=== PATIENT | male | born 1955 | race Caucasian/White ===

== ENCOUNTER 2024-11-14 23:41 | Observation (INO) | payer MEDICARE, MEDICAID ==
[~2024-11-14] VITALS: Ht 172.7 cm; Wt 70.0 kg
[2024-11-15] VITALS (16 sets, daily range): BP systolic 137–161; BP diastolic 69–100; PULSE 102–118; RESP 14–24; TEMP 97.9–98.3; O2SAT 94–100
[2024-11-15 00:46] LABS: MEAN PLATELET VOLUME 6.7 FL (7.4-10.4); RED CELL DISTRIBUTION WIDTH 16.5 % (11.5-14.5)
[2024-11-15 01:01] LABS: CREATININE 0.80 MG/DL (0.60-1.10); TOTAL CARBON DIOXIDE 34.2 MMOL/L (24-32); eCRCL 87 ML/MIN; eGFR > 90 ML/MIN
--- NOTE | 2024-11-15 01:07 | RADIOLOGY REPORT ---
CHEST RADIOGRAPH Indication: sob Technique: 1 view Comparison: None FINDINGS: Lines and Tubes: External leads. Lungs/Pleura: Bilateral infrahilar interstitial opacities. Relative lucency of the upper lungs. No consolidation or evident pleural abnormality. Cardiomediastinum: Unremarkable. Other: No acute osseous abnormality. IMPRESSION: 1. Infrahilar interstitial opacities may be related to reticulation from chronic emphysema, edema and/or atypical infection.
--- NOTE | 2024-11-15 02:16 | Physician Documentation ---
History of Present Illness ~ Chief Complaint: Difficulty Breathing Stated Complaint: CHEST XRAY Time Seen by MD: 23:56 Mode of Arrival: EMS HPI This is a 69-year-old gentleman who was not hospice, for his end-stage COPD, normally on 2 L of oxygen, was transferred to us from a group home facility where he normally resides because his chest x-ray that was obtained incidentall y, stated that is might potentially be sign of TB. The gentleman has a no known exposure to tuberculosis, no new symptoms. He does report night sweats for the last 10 years. He has never been tested for tuberculosis. He reports shortness a breath, chronic, unchanged. Denies any chest pain. Denies any nausea, vomiting, diarrhea, abdominal pain. Denies any current fever. Medication Reconciliation Allergies: Coded Allergies: codeine (Verified Allergy, Intermediate, 11/15/24) Review of Systems ROS 10 point review of systems was performed and unless noted above in HPI is negative for acute process/complaint. Physical Exam Vital Signs: Temperature: 98.2, Source: Oral, Heart Rate: 112, Respiratory Rate: 14, BP: 163/95, Pulse Oximetry: 99, Weight: 70.000 Oxygen Flow Rate: 2.0 Physical Exam GENERAL: Awake, alert, oriented, GCS 15, no apparent distress, non-toxic appearing, answers questions, follows commands appropriately. Examined in bed 1. HEENT: Atraumatic, normocephalic, pupils equal, extraocular muscles intact, sclerae anicteric, mucus membranes moist, oropharynx is clear, no stridor. NECK: supple, full active range of motion, trachea midline, no thyromegaly, no lymphadenopathy, no JVD. CARDIOVASCULAR: Tachycardic and regular rate/rhythm, no murmurs/gallops/rubs, Pulses are 2+ in all extremities and symmetric. Capillary refill less than 2 seconds. PULMONARY: Nonlabored, good air movement ,no respiratory distress, speaking in full sentences, coarse breath sounds bilaterally, no wheezing, no ronchi, no rales, no accessory muscle use. GASTROINTESTINAL: Soft, non-tender, non-distended, normal active bowel sounds, no organomegaly, no pulsatile masses, no CVA tenderness. NEUROLOGIC: Lucid with normal mental status. Normal facial symmetry. Moves all extremities symmetrically and with purpose. No truncal ataxia. Speech is fluid without evidence of dysarthria or aphasia, no focal deficits appreciated. MUSCULOSKELETAL: There is full range of motion of all extremities. There is no joint pain or joint swelling or joint erythema. There is no muscle pain or tenderness or swelling. EXTREMITIES: warm, well-perfused, no cyanosis, no clubbing, no edema, no acute deformities. Skin: warm, dry, no rashes or lesions, no jaundice, no petechiae orpurpura. No ecchymosis. PSYCHIATRIC: Normal affect, normal insight, normal concentration. Focused exam: [] Progress Results/Orders Results/Orders Orders - VERONIKA ROSARIO DO Electrocardiogram (11/14/24 23:56) Chest,Single View (11/14/24 23:56) Completed Orders - VERONIKA ROSARIO DO Cbc/Diff (11/14/24 23:56) ESR (11/14/24 23:56) C-Reactive Protein (11/14/24 23:56) MG (11/14/24 23:56) Hs Troponin I W Calculations (11/14/24 23:56) CMP (11/14/24 23:56) Chest,Single View (11/14/24 23:56) Vital Signs 11/14/24 11/15/24 11/15/24 23:56 00:12 01:37 Temp 98.2 98.2 98.2 Pulse 113 109 112 Resp 16 14 14 B/P (MAP) 147/101 147/100 (116) 163/95 (117) Pulse Ox 97 97 99 O2 Flow Rate 2.0 2.0 2.0 Laboratory Tests Test 11/15/24 00:36 White Blood Count 9.5 Red Blood Count 3.79 L Hemoglobin 10.0 L Hematocrit 32.0 L Mean Corpuscular Volume 84.3 Mean Corpuscular Hemoglobin 26.5 L Mean Corpuscular Hemoglobin Concent 31.4 L Red Cell Distribution Width 16.5 H Platelet Count 251 Mean Platelet Volume 6.7 L Neutrophils (%) (Auto) 79.7 H Lymphocytes (%) (Auto) 10.4 L Monocytes (%) (Auto) 8.0 Eosinophils (%) (Auto) 1.3 Basophils (%) (Auto) 0.6 Neutrophils # (Auto) 7.6 Lymphocytes # (Auto) 1.0 L Monocytes # (Auto) 0.8 Eosinophils # (Auto) 0.1 Basophils # (Auto) 0.1 CBC Comment Erythrocyte Sedimentation Rate 62 H Sodium Level 132 L Potassium Level 4.0 Chloride Level 92 L Carbon Dioxide Level 34.2 H Anion Gap 6 L Blood Urea Nitrogen 20 H Creatinine 0.80 Estimated GFR/1.73 m2 > 90 BUN/Creatinine Ratio 25.0 H Glucose Level 130 H Calcium Level 8.9 Magnesium Level 1.9 Total Bilirubin 0.3 Aspartate Amino Transf (AST/SGOT) 18 Alanine Aminotransferase (ALT/SGPT) 15 Alkaline Phosphatase 132 H Troponin I High Sensitivity 33 C-Reactive Protein 2.25 H Total Protein 8.3 H Albumin 2.6 L Globulin 5.7 H Albumin/Globulin Ratio 0.5 L Chemistry Comments EKG/XRAY/CT/US/VASC/MRI EKG : Additional Comment EKG was obtained and interpreted by myself shows sinus tachycardic, rate of 109, normal HI interval, narrow QRS, no QT prolongation, normal axis, no STEMI. Medical Decision Making Findings Facility Status: ED Holds, [facility] process The plan was discussed with the patient, who demonstrates clear understanding of the plan and is in agreement with the plan unless otherwise noted in the chart. All questions have been answered, all concerns were addressed unless otherwise documented. I was available throughout their ED stay for frequent reassessment and questions. Differential Diagnoses (considered and possible or likely): [COPD exacerbation, COVID, pneumonia, occult bacteremia, ACS, CHF, significantly less likely actual tuberculosis.] ??Differential Diagnoses (considered and unlikely, not requiring evaluation currently): [See above] MDM Data Please see [facility] for the following: Independent Historians and external Records Review. Historian: [Patient] Independent Historians: ?[Record review including the ill fated chest x-ray] Medication Management: [Reviewed medication list] Social History and determinants: [Reviewed] Please see the body of the note for the following: Any independent interpretations of ECG, imaging studies. All vitals signs/haemodynamics, ordered tests were independently reviewed and interpreted by myself. Nursing triage complaint and vitals reviewed, additional nursing notes were reviewed as available and I agree unless otherwise noted or documented in contradiction in the chart Vital Signs: Independently reviewed Labs: Independently interpreted Imaging: Independently interpreted Old Medical Records: Independently reviewed, see [facility] for relevant summary and information Pulse Oximetry: [95% on baseline 2 L] interpreted as [baseline hypoxia] by me Additionally notably showing: [Hemodynamics reviewed. The patient is on baseline 2 L. Tachycardia persists. No evidence of hypoxia. Laboratory studies reviewed. There was no leukocytosis, anemia of 10. ESR slightly elevated at 62. CRP is elevated. Chemistry notable for dehydration. Troponin is within normal limits. Imaging was repeated. It shows bilateral infrahilar interstitial opacities.] Tests considered but not ordered include: [Advanced imaging has been considerably does not appear to be necessary in the setting] Social Determinants of Health Impact: Patient was evaluated in [facility] [place] access to healthcare due to below par ratio of patient to medical providers. [] Comorbid Conditions Impacting Present Evaluation and Care/Treatment: [End-stage COPD] Management Discussions with other Healthcare Providers: [Hospitalist regarding admission] Treatment and Disposition Medication Management (Given or considered): []. See EMR for details Consideration for Hospitalization/Escalation/Deescalation of Care: Admission for observation has been considered, and appears to be necessary until we can re ceive results of QuantiFERON gold ?ED Course:?[QuantiFERON gold test is a send out.] ?Shared decision making:?[] Code status:?FULL Please see the full Electronic Medical Record for full details of nursing documentation, medications list, other records of complete past medical history and conditions, vital signs, laboratory studies, and any radiologic study interpretations by radiologists. Portions of this note were completed using [employer] dictation software and as a result there may exist minor errors in spelling. I have reviewed elements of past family and social history and agree as included in note. Departure Disposition: ADMITTED INPATIENT Impression: Primary Impression: Shortness of breath Additional Impression: Night sweats Condition: Stable Referrals: NO PRIMARY CARE PROVIDER (PCP) Signature Scribe Signature: No scribe Attestation: Date: Nov 15, 2024 Time: 02:15 This note accurately reflects clinical decisions, work performed by myself, DO ABRAHAM Buckner NICHOLAS M DO Nov 15, 2024 02:16
[2024-11-15] MEDS: normal saline 1000ml 1,000 ML IV ONE (02:35)
[2024-11-15] MEDS ORDERED: magnesium Cl slow-release 64mg tablet PO PRN (03:30)
[2024-11-15] MEDS ORDERED: magnesium sulf-water 4G/100mL 100 ML IV PRN (03:30)
[2024-11-15] MEDS ORDERED: PERFLUTREN PROTEIN-A MICROSPHR (Optison) 0.22 MG/ML 3ML VIAL IV PRN (03:30)
[2024-11-15] MEDS ORDERED: ondansetron/PF 4mg/2ml inj IV PRN (03:30)
[2024-11-15] MEDS ORDERED: potassium Cl 40MEQ/1/2NS 520ml 520 ML IV PRN (03:30)
[2024-11-15] MEDS ORDERED: potassium Cl 20 mEq SR tablet PO PRN ×2 (03:30)
[2024-11-15] MEDS ORDERED: magnesium sulf-water 2g/50mL 50 ML IV PRN (03:30)
--- NOTE | 2024-11-15 03:39 | HISTORY AND PHYSICAL-Residence ---
History & Physical Providers to CC Resident Creating Document: MARITA CRISOSTOMO RES ~ History of Present Illness Reason for Admit\\Complaint: Suspected TB, SOB History of Present Illness The patient is a 69-year-old man with a history of end-stage COPD, on 2-3 L of home oxygen, who presents from [facility] in [place]. He was sent to the hospital after a chest x-ray appeared suspicious for tuberculosis. [facility] and was recently enrolled in hospice care for end-stage lung disease. In addition to chronic COPD symptoms, he reports night sweats, intermittent nightly fevers, anorexia, loss of appetite, and unintentional weight loss over the past year. He also notes increased sputum production, yellow and occasionally green in color, but denies hemoptysis. The patient stated that if diagnosed with tuberculosis, he would want full treatment. He expressed disagreement with his recent hospice determination, noting that he felt "pushed" into that decision by his [place] physician. Regarding his social and functional status, he previously lived with his but has been at the hospice facility for the past three days. He ambulates with a walker but is limited to only a few steps due to COPD and significant dyspnea on exertion. He follows with Dr. Mejía, last seen one year ago. He has been using prednisolone intermittently for COPD. He denies other risk factors for tuberculosis, including incarceration, travel to endemic regions, or known exposure to patients with TB. His only identified risk factor is chronic immunosuppression from steroid use. Goal of care: Patient previously placed on hospice by [place] but states disagreement with this decision. Expresses desire for full treatment if TB is diagnosed. Further discussion recommended with patient, , and care team regarding overall goals, especially given end-stage COPD. Allergies: Coded Allergies: codeine (Verified Allergy, Intermediate, 11/15/24) Past Medical History Past Medical History End-stage COPD Past Surgical History Surgical History Comment Noncontributory Past Social History Social History Comment Smoked throughout his life; quit 10 years ago. No alcohol or recreational drugs. Has been residing in [facility] in [place] for the past three days. Limited ambulation due to exertional dyspnea. Using a walker. ROS All Other Systems: Reviewed and Negative ROS As stated above in the HPI, otherwise all systems are reviewed and negative. Exam Vitals: Vital Signs Date Time Temp Pulse Resp B/P (MAP) Pulse Ox O2 Delivery O2 Flow Rate FiO2 9/14/25 01:37 98.2 112 14 163/95 (117) 99 2.0 General: Awake and Alert, no acute distress. HEENT: Conjunctiva pink, Sclera clear, Mucus Membranes moist. Neck: Supple without masses and tenderness. Resp: Reduced air entry right lung, extremely diminished air entry left lung Heart: Regular Rate and rhythm, normal S1 and S2 without murmur, rub or gallop. Abdomen: Soft and non tender no organomegaly Extremities: No cyanosis,clubbing or edema. Skin: Warm and Dry. Diagnostic Data Last Recorded Lab Results: 11/15/243511/15/24 0036 Advance Care Planning Advanced Care plannin - 30 Minutes Additional Plan Assessment and plan 1. Rule out pulmonary tuberculosis Patient presents with constitutional symptoms; night sweats, intermittent fever, anorexia, weight loss, chronic steroid use, and CXR showing bilateral interstitial hilar opacities with the underlying emphysema Lab; ESR 62, CRP 2.5, albumin 2.6 (low, chronic illness) Workup; interferon gamma release assays [place] Sputum for AFB, culture, Gram stain ordered Precautions; completion placed in airborne isolation 2. Acute COPD exacerbation End-stage, on 2-3 L home oxygen Symptoms; increased sputum production; yellow/green, worsening dyspnea, poor exercise tolerance CXR; hyperinflated lungs, chronic emphysema Maintain oxygen saturation between 90-94%; supplemental O2 via nasal canula if SpO2 <90% Solu-Medrol 125 mg IV bolus given Solu-Medrol 40 Mg IV twice daily Ceftriaxone 1 g IV daily Azithromycin 500 mg IV daily DuoNeb nebulization every 4 hours as scheduled, and every 4 hours as needed Incentive spirometry 3. Chronic hypoxemic respiratory failure Baseline 2-3 L oxygen requirement Continue oxygen therapy, titrate to maintain SpO2 > 88% 4. Chronic anemia; anemia of chronic disease vs nutritional deficiency HB 10, MCV 84.3, RDW 16.5 Likely chronic disease anemia in setting of end-stage COPD and inflammation Iron studies, pending - consistent with the patient's wishes 5. Malnutrition/hypoalbuminemia Albumin 2.6, anorexia, poor appetite, weight loss Nutrition consult, consistent with patient's wishes and prognosis 6. Goal of care [facility] but states disagreement with this decision. Expresses desire for full treatment if TBS diagnosed. Further discussion recommended with patient, , and care team regarding overall goals, especially given end-stage COPD. Code status: DNR DVT prophylaxis: Sahra Crisostomo Internal Medicine Resident, PGY-3 Date of Service: Nov 15, 2024 Billing Provider: CARLI FERRARA MD,MARITA, RES Nov 15, 2024 03:39
[2024-11-15] MEDS: CefTRIAXone/D5W-Rocephin 1gm 50 ML IV SCH (04:04)
[2024-11-15] MEDS: azithromycin/NS 500mg/250ml 250 ML IV SCH (04:05)
[2024-11-15] MEDS: ipratropium/albuterol 3ml nebule NEB PRN (05:32)
[2024-11-15] MEDS: ipratropium/albuterol 3ml nebule NEB SCH (07:36)
[2024-11-15] MEDS: K and/or MAG REPLACEMENT MC SCH (08:00)
[2024-11-15] MEDS: enoxaparin 40mg/0.4ml syringe SUBCUT SCH (08:18)
[2024-11-15 08:31] LABS: % IRON SATURATION 13 % (11-46)
--- NOTE | 2024-11-15 08:36 | ELECTROCARDIOGRAPH REPORT ---
[facility] Test Date: 2024-11-15 Test Time: 00:21:13 Pat Name: SERGIO FOSTER Department: [facility]- Patient ID: [facility]-[id number] Room: [place] [address] Gender: M Group Therapist: : 1955 Requested By: VERONIKA ROSARIO Order Number: [id number] Reading MD: Dr. Cam Campbell Measurements Intervals [place] Rate: 109 P: 45 IN: 140 QRS: 73 QRSD: 80 T: 56 QT: 335 QTc: 452 Interpretive Statements Sinus tachycardia Supraventricular bigeminy Electronically Signed On 11-18-2024 19:19:[address] Cam Campbell Please click the below link to view image of tracing.
--- NOTE | 2024-11-15 09:33 | RADIOLOGY REPORT ---
AP portable chest CLINICAL INDICATION: TO STATE NO EVIDENCE OF TB FINDINGS: Heart size is normal. No infiltrates or effusions. No bony thoracic abnormalities. IMPRESSION: 1. No signs of TB or other acute cardiopulmonary pathology
[2024-11-15] MEDS ORDERED: IPRA3AMP31 NEB (10:21)
[2024-11-15] MEDS ORDERED: HYOS-15 SL (10:21)
[2024-11-15] MEDS ORDERED: FENT-90 TOP (10:21)
[2024-11-15] MEDS ORDERED: BISA10SU11 RC (10:21)
[2024-11-15] MEDS ORDERED: PROM25TA14 PO (10:21)
[2024-11-15] MEDS ORDERED: SENN8.6T19 PO (10:21)
[2024-11-15] MEDS ORDERED: LORA-269 PO (10:21)
[2024-11-15] MEDS ORDERED: ACET650S13 RC (10:21)
[2024-11-15] MEDS ORDERED: MORP20SO PO (10:21)
--- NOTE | 2024-11-15 17:37 | PROGRESS NOTE ---
Daily Progress Note Providers to CC ~ Antibiotic Timeout Antibiotic Ordered?: No Subjective The patient was transferred from [facility] on hospice care there was concerns that the patient has TB as per their chest x-ray however the chest x- ray in the ED was clearly negative for any cavitary lesions none reported by the radiologist nor could I appreciate any cavitary lesions and the repeat x-ray states that has no evidence of TB. The patient refused his echocardiogram when I spoke with the patient the patient is on hospice care and does not want antibiotics had received a page just prior to this the patient did not want an echocardiogram either. The patient informs me he has had fevers night sweats in the evening for years and has a diagnosis of mantle cell lymphoma. The patient informs me that he has lost weight in the past however her his weight has stabilized in his not concerned about losing weight at this juncture. He wants to go back to [facility] today however they will not accept him back untill to tomorrow. Objective Vital Signs Date Time Temp Pulse Resp B/P (MAP) Pulse Ox O2 Delivery O2 Flow Rate FiO2 11/15/24 16:31 106 14 Nasal Cannula 2.0 11/15/24 16:26 94 28 11/15/24 10:00 98.2 137/69 (91) Result Diagram: 11/15/24 0036 11/15/24 0036 Gen. No acute distress alert and oriented 4 Lungs clear to ascultation bilaterally, no wheezes rales or rhonchi appreciated Heart normal sinus rhythm no murmurs rubs or clicks noted Abdomen soft nontender bowel sounds are normoactive Lower extremities no clubbing cyanosis, nor edema appreciated bilaterally Problem\\Assessment\\Plan Problems/Diagnosis: (1) Mantle cell lymphoma # mantle cell lymphoma With night sweats and fevers at night for years Had previously significant weight loss however this has stabilized On hospice care Chest x-ray has no signs of cavitary lesions And a repeat chest x-ray demonstrates " No signs of TB or other acute cardiopulmonary pathology" # COPD Continue PRN nebs Disposition: I spoke to our case management associate Sybil Lee to see if we can discharge the patient back to [facility] for hospice care today however they will accept the patient back tomorrow. I spent a total of 20 minutes on reviewing various resuscitative measures/ ACP with the patient at the time of admission. The patient made it clear that he does not want antibiotics he informed me a couple of times that he is DNR however when I spoke to him he states that he is hospice care at [facility] and after explaining the differences between DNR and comfort care the patient made it clear that he is DNR with comfort care that is all antibiotics lab draws and all other measures and treatments that are not comfort related are discontinued. Date of Service: Nov 15, 2024 Billing Provider: STACY CONDON DO Common Visit Codes: NOT BILLABLE (Admitted After midnight to be billed by national service officer) Secondary Visit Codes: 73760-[id number] CARE PLAN 30 MINUTES STACY CONDON DO Nov 15, 2024 17:37
[2024-11-15] MEDS ORDERED: methylPREDNISolone sod succ/PF 40mg inj. IV SCH (20:00)
[2024-11-16] VITALS (9 sets, daily range): BP systolic 151; BP diastolic 96; PULSE 72–112; RESP 16–20; TEMP 97.4; O2SAT 95–98
--- NOTE | 2024-11-16 23:43 | DISCHARGE SUMMARY ---
Discharge Summary Providers to CC ~ Discharge Summary Admission Diagnosis: COPD, SUSPECTED TB Hospital Course DATE OF ADMISSION: 11/15/2024 DATE OF DISCHARGE: 11/16/2024 Discharge Diagnosis\\Comment: Mantle cell lymphoma, COPD Operations\\Procedures: None Consultants: None Complications: None Condition on DC: Stable Discharge Summary: The patient was admitted by resident physician SERGIO Alberto under the supervision of CARLI Jimenez MD with the following HPI: "The patient is a 69-year-old man with a history of end-stage COPD, on 2-3 L of home oxygen, who presents from [facility] in [place]. He was sent to the hospital after a chest x-ray appeared suspicious for tuberculosis. [facility] and was recently enrolled in hospice care for end-stage lung disease. In addition to chronic COPD symptoms, he reports night sweats, intermittent nightly fevers, anorexia, loss of appetite, and unintentional weight loss over the past year. He also notes increased sputum production, yellow and occasionally green in color, but denies hemoptysis. The patient stated that if diagnosed with tuberculosis, he would want full treatment. He expressed disagreement with his recent hospice determination, noting that he felt "pushed" into that decision by his [place] physician. Regarding his social and functional status, he previously lived with his but has been at the hospice facility for the past three days. He ambulates with a walker but is limited to only a few steps due to COPD and significant dyspnea on exertion. He follows with Dr. Mejía, last seen one year ago. He has been using prednisolone intermittently for COPD. He denies other risk factors for tuberculosis, including incarceration, travel to endemic regions, or known exposure to patients with TB. His only identified risk factor is chronic immunosuppression from steroid use. Goal of care: Patient previously placed on hospice by [place] but states disagreement with this decision. Expresses desire for full treatment if TB is diagnosed. Further discussion recommended with patient, , and care team regarding overall goals, especially given end-stage COPD." I spoke with the patient's on the following morning that he had night sweats and fevers for years due to his mantle cell lymphoma the patient is on hospice for this reason. The patient did not want any treatments including antibiotics and refused an echocardiogram The patient has chronic COPD on oxygen and was stable. The patient was discharged back to [facility] for hospice on the Gen. No acute distress alert and oriented 4 Lungs clear to ascultation bilaterally, no wheezes rales or rhonchi appreciated Heart normal sinus rhythm no murmurs rubs or clicks noted Abdomen soft nontender bowel sounds are normoactive Lower extremities no clubbing cyanosis, nor edema appreciated bilaterally The patient felt ready to be discharged and was medically cleared to be discharged on 11/16/2024 The patient was seen and evaluated on day of discharge. Time spent on discharge 20 minutes *Problems/Diagnosis: (1) Mantle cell lymphoma Total Time Spent on D/C: > 30 Minutes Date of Service: Nov 16, 2024 Billing Provider: STACY CONDON DO Common Visit Codes: 80095-LTE/OBS DISCH DAY <30MIN STACY CONDON DO Nov 16, 2024 23:43
== END 2024-11-16 17:53 ==
LOC: ER 23:45 → ED HOLD 11-15 02:58 → INTOOBSV 11-15 02:58 → SUR 3N 11-15 07:20
PROVIDERS: ADMIT Internal Medicine; ATTEND Family Medicine
DX: J44.9 Chronic obstructive pulmonary disease, unspecified (principal); C83.10 Mantle cell lymphoma, unspecified site; J98.4 Other disorders of lung; R63.0 Anorexia; R61 Generalized hyperhidrosis; R79.1 Abnormal coagulation profile; Z79.899 Other long term (current) drug therapy; Z98.890 Other specified postprocedural states
CPT/HCPCS: 80053; 82728; 83036; 83540; 83550; 83735; 84484; 86140; 93005; 94640; 94760; 96361; 96365; 96368; 96372; 96375; 99285; G0378; J2919; 36415; 71045; 85025; 85651; 87081; 96376; J0456; J0696; J1650; J7030